=== PATIENT | male | born 1985 | race Caucasian/White ===

== ENCOUNTER 2018-08-13 19:33 | Emergency (ER) | payer BC ==
--- NOTE | 2018-08-13 19:36 | EDM.PDOC ---
ED HPI GENERAL MEDICAL PROBLEM - General Chief Complaint: Abdominal Pain Stated Complaint: ABDOMINAL PAIN,DIARRHEA,VOMITING Time Seen by Provider: 08/13/18 19:35 Source of Information: Reports: Patient History Limitations: Reports: No Limitations - History of Present Illness INITIAL COMMENTS - FREE TEXT/NARRATIVE: Patient was not evaluated through the emergency room as he signed out well through the triage process. - Related Data Allergies Allergy/AdvReac Type Severity Reaction Status Date / Time sulfamethoxazole Allergy Blisters Verified 06/13/18 09:22 [From Bactrim] trimethoprim [From Bactrim] Allergy Blisters Verified 06/13/18 09:22 Home Meds: Home Meds . [No Known Home Meds] 06/13/18 [History] Past Medical History HEENT History: Reports: None Cardiovascular History: Reports: None Respiratory History: Reports: Asthma, Bronchitis, Recurrent Gastrointestinal History: Reports: None Genitourinary History: Reports: None Musculoskeletal History: Reports: None Neurological History: Reports: None Psychiatric History: Reports: None Endocrine/Metabolic History: Reports: None Hematologic History: Reports: None Immunologic History: Reports: None Oncologic (Cancer) History: Reports: None Dermatologic History: Reports: None - Past Surgical History Head Surgeries/Procedures: Reports: None HEENT Surgical History: Reports: Other (See Below) Other HEENT Surgeries/Procedures: nasal reconstructoin Cardiovascular Surgical History: Reports: None Respiratory Surgical History: Reports: None GI Surgical History: Reports: None Male Surgical History: Reports: None Endocrine Surgical History: Reports: None Neurological Surgical History: Reports: None Musculoskeletal Surgical History: Reports: None Oncologic Surgical History: Reports: None Dermatological Surgical History: Reports: None Social & Family History - Family History Family Medical History: Noncontributory - Caffeine Use Caffeine Use: Reports: Soda ED ROS GENERAL - Review of Systems Review Of Systems: See Below (Not seen) ED EXAM, GI/ABD - Physical Exam Exam: See Below (Not Seen) Course - Orders/Labs/Meds Orders: Active Orders 24 hr Category Date Time Status CBC WITH AUTO DIFF [HEME] Stat Lab 08/13/18 19:41 Ordered COMPREHENSIVE METABOLIC PN,CMP [CHEM] Stat Lab 08/13/18 19:42 Ordered LIPASE [CHEM] Stat Lab 08/13/18 19:42 Ordered UA RFX CAN AND CULT IF INDIC [URIN] Stat Lab 08/13/18 19:42 Ordered Saline Lock Insert [OM.PC] Stat Oth 08/13/18 19:42 Ordered Meds: Medications Discontinued Medications Generic Name Dose Route Start Last Admin Trade Name Samaria PRN Reason Stop Dose Admin Sodium Chloride 1,000 mls @ 999 mls/hr 08/13/18 19:42 Normal Saline IV 08/13/18 20:42 STAT ONE Sodium Chloride 10 ml 08/13/18 19:42 Saline Flush FLUSH ASDIRECTED PRN Keep Vein Open Sodium Chloride 2.5 ml 08/13/18 19:42 Saline Flush FLUSH ASDIRECTED PRN Keep Vein Open Departure - Departure Time of Disposition: 20:32 Disposition: Eloped 07 Condition: Undetermined (Eloped) Clinical Impression: Eloped from emergency department - Discharge Information Referrals: PCP,None [Primary Care Provider] - Forms: ED Department Discharge - My Orders Last 24 Hours: My Active Orders 08/13/18 19:41 CBC WITH AUTO DIFF [HEME] Stat 08/13/18 19:42 COMPREHENSIVE METABOLIC PN,CMP [CHEM] Stat LIPASE [CHEM] Stat UA RFX CAN AND CULT IF INDIC [URIN] Stat Saline Lock Insert [OM.PC] Stat - Assessment/Plan Last 24 Hours: My Active Orders 08/13/18 19:41 CBC WITH AUTO DIFF [HEME] Stat 08/13/18 19:42 COMPREHENSIVE METABOLIC PN,CMP [CHEM] Stat LIPASE [CHEM] Stat UA RFX CAN AND CULT IF INDIC [URIN] Stat Saline Lock Insert [OM.PC] Stat
[2018-08-13] MEDS ORDERED: Sodium Chloride 0.9% 10 ML Syringe FLUSH PRN (19:42)
[2018-08-13] MEDS ORDERED: Sodium Chloride 0.9% 1,000 ML IV ONE (19:42)
[2018-08-13] MEDS ORDERED: Sodium Chloride 0.9% 2.5 ML Syringe FLUSH PRN (19:42)
== END 2018-08-13 20:19 | disposition left against medical advice (07) ==
LOC: MW.ED 19:33
DX: Z53.21 Procedure and treatment not carried out due to patient leaving prior to being seen by health care provider (principal)
CPT/HCPCS: 99281; 99282

== ENCOUNTER 2018-10-06 22:35 | Emergency (ER) | payer BC ==
[2018-10-06] MEDS ORDERED: Ketorolac 60 MG/2 ML SDV IM ONE (22:52)
[2018-10-06] MEDS ORDERED: Amoxicillin 500 MG Cap PO ONE (22:52)
[2018-10-06] MEDS ORDERED: Lidocaine 2% Viscous Solution 15 ML Cup PO ONE (22:53)
[2018-10-06] MEDS ORDERED: Benzocaine 20% Topical Spray UD MUCMEM ONE (22:53)
--- NOTE | 2018-10-06 22:56 | EDM.PDOC ---
ED HPI GENERAL MEDICAL PROBLEM - General Chief Complaint: ENT Problem Stated Complaint: TOOTHACHE Time Seen by Provider: 10/06/18 22:53 Source of Information: Reports: Patient - History of Present Illness INITIAL COMMENTS - FREE TEXT/NARRATIVE: HISTORY AND PHYSICAL: History of present illness: []Patient has dental pain, poor dentition in general multiple tooth extractions and dentition in various states of decay, does have an appointment with a dentist in [place] on September 20 on his return home No fever nausea vomiting chills sweats Review of systems: As per history of present illness and below otherwise all systems reviewed and negative. Past medical history: As per history of present illness and as reviewed below otherwise noncontributory. Surgical history: As per history of present illness and as reviewed below otherwise noncontributory. Social history: No reported history of drug or alcohol abuse. Family history: As per history of present illness and as reviewed below otherwise noncontributory. Physical exam: HEENT: Atraumatic, normocephalic, pupils reactive, negative for conjunctival pallor or scleral icterus, mucous membranes moist, throat clear, neck supple, nontender, trachea midline. Dentition as outlined in history of present illness Lungs: Clear to auscultation, breath sounds equal bilaterally, chest nontender. Heart: S1S2, regular, negative for clicks, rubs, or JVD. Abdomen: Soft, nondistended, nontender. Negative for masses or hepatosplenomegaly. Negative for costovertebral tenderness. Pelvis: Stable nontender. Genitourinary: Deferred. Rectal: Deferred. Extremities: Atraumatic, negative for cords or calf pain. Neurovascular unremarkable. Neuro: Awake, alert, oriented. Cranial nerves II through XII unremarkable. Cerebellum unremarkable. Motor and sensory unremarkable throughout. Exam nonfocal. Diagnostics: [Clinical ] Therapeutics: [Amoxicillin Dental balls Toradol 60 IM Toradol No. 15 no refill ] Impression: [ dental pain ] Definitive disposition and diagnosis as appropriate pending reevaluation and review of above. Right Oral/Mouth Pain Score (Numeric/FACES): 10 - Related Data Allergies Allergy/AdvReac Type Severity Reaction Status Date / Time sulfamethoxazole Allergy Blisters Verified 10/06/18 22:44 [From Bactrim] trimethoprim [From Bactrim] Allergy Blisters Verified 10/06/18 22:44 Home Meds: Home Meds . [No Known Home Meds] 06/13/18 [History] Past Medical History HEENT History: Reports: None Cardiovascular History: Reports: None Respiratory History: Reports: Asthma, Bronchitis, Recurrent Gastrointestinal History: Reports: None Genitourinary History: Reports: None Musculoskeletal History: Reports: None Neurological History: Reports: None Psychiatric History: Reports: None Endocrine/Metabolic History: Reports: None Hematologic History: Reports: None Immunologic History: Reports: None Oncologic (Cancer) History: Reports: None Dermatologic History: Reports: None - Infectious Disease History Infectious Disease History: Reports: Chicken Pox - Past Surgical History Head Surgeries/Procedures: Reports: None HEENT Surgical History: Reports: Other (See Below) Other HEENT Surgeries/Procedures: nasal reconstructoin Cardiovascular Surgical History: Reports: None Respiratory Surgical History: Reports: None GI Surgical History: Reports: None Male Surgical History: Reports: None Endocrine Surgical History: Reports: None Neurological Surgical History: Reports: None Musculoskeletal Surgical History: Reports: None Oncologic Surgical History: Reports: None Dermatological Surgical History: Reports: None Social & Family History - Family History Family Medical History: Noncontributory - Tobacco Use Smoking Status *Q: Former Smoker Used Tobacco, but Quit: Yes Month/Year Tobacco Last Used: 2016 - Caffeine Use Caffeine Use: Reports: Soda - Recreational Drug Use Recreational Drug Use: No ED ROS GENERAL - Review of Systems Review Of Systems: See Below ED EXAM, GENERAL - Physical Exam Exam: See Below Course - Vital Signs Last Recorded V/S: Last Vital Signs Temp 97.2 F 10/06/18 22:44 Pulse 76 10/06/18 22:44 Resp 18 10/06/18 22:44 BP 156/91 H 10/06/18 22:44 Pulse Ox 94 L 10/06/18 22:44 - Orders/Labs/Meds Orders: Active Orders 24 hr Category Date Time Status Amoxicillin [Amoxil] Med 10/06/18 22:52 Once 1,000 mg PO ONETIME ONE Benzocaine [Hurricaine One 20%] Med 10/06/18 22:53 Once 2 each MUCMEM ONETIME ONE Ketorolac [Toradol] Med 10/06/18 22:52 Once 60 mg IM ONETIME ONE Lidocaine 2% [Xylocaine 2% Viscous] Med 10/06/18 22:53 Once 15 ml PO ONETIME ONE Medication Orders Amoxicillin (Amoxil) 1,000 mg PO ONETIME ONE Stop: 10/06/18 22:53 Ketorolac Tromethamine (Toradol) 60 mg IM ONETIME ONE Stop: 10/06/18 22:53 Meds: Medications Generic Name Dose Route Start Last Admin Trade Name Samaria PRN Reason Stop Dose Admin Amoxicillin 1,000 mg 10/06/18 22:52 Amoxil PO 10/06/18 22:53 ONETIME ONE Ketorolac Tromethamine 60 mg 10/06/18 22:52 Toradol IM 10/06/18 22:53 ONETIME ONE Departure - Departure Time of Disposition: 22:55 Disposition: Home, Self-Care 01 Condition: Good Clinical Impression: Pain, dental - Discharge Information Referrals: PCP,None [Primary Care Provider] - Additional Instructions: The following information is given to patients seen in the emergency department who are being discharged to home. This information is to outline your options for follow-up care. We provide all patients seen in our emergency department with a follow-up referral. The need for follow-up, as well as the timing and circumstances, are variable depending upon the specifics of your emergency department visit. If you don't have a primary care physician on staff, we will provide you with a referral. We always advise you to contact your personal physician following an emergency department visit to inform them of the circumstance of the visit and for follow-up with them and/or the need for any referrals to a consulting specialist. The emergency department will also refer you to a specialist when appropriate. This referral assures that you have the opportunity for follow-up care with a specialist. All of these measure are taken in an effort to provide you with optimal care, which includes your follow-up. Under all circumstances we always encourage you to contact your private physician who remains a resource for coordinating your care. When calling for follow-up care, please make the office aware that this follow-up is from your recent emergency room visit. If for any reason you are refused follow-up, please contact the [facility] emergency department at and asked to speak to the emergency department charge nurse. - My Orders Last 24 Hours: My Active Orders 10/06/18 22:52 Amoxicillin [Amoxil] 1,000 mg PO ONETIME ONE Ketorolac [Toradol] 60 mg IM ONETIME ONE 10/06/18 22:53 Benzocaine [Hurricaine One 20%] 2 each MUCMEM ONETIME ONE Lidocaine 2% [Xylocaine 2% Viscous] 15 ml PO ONETIME ONE - Assessment/Plan Last 24 Hours: My Active Orders 10/06/18 22:52 Amoxicillin [Amoxil] 1,000 mg PO ONETIME ONE Ketorolac [Toradol] 60 mg IM ONETIME ONE 10/06/18 22:53 Benzocaine [Hurricaine One 20%] 2 each MUCMEM ONETIME ONE Lidocaine 2% [Xylocaine 2% Viscous] 15 ml PO ONETIME ONE
== END 2018-10-06 23:20 | disposition home or self-care (01) ==
LOC: MW.ED 22:35
DX: K08.89 Other specified disorders of teeth and supporting structures (principal); Z88.2 Allergy status to sulfonamides; Z79.899 Other long term (current) drug therapy; Z87.891 Personal history of nicotine dependence
CPT/HCPCS: 96372; 99282; A9270; J1885; 99283